=== PATIENT | female | born 1985 | race Caucasian/White ===

== ENCOUNTER → 2016-08-27 | Outpatient (CLI) | payer BC | LOC: M SMT 14:45 | PROVIDERS: ATTEND Obstetrics & Gynecology | DX: Z36 Encounter for antenatal screening of mother (principal); Z31.430 Encounter of female for testing for genetic disease carrier status for procreative management ==

== ENCOUNTER → 2016-09-13 | Outpatient (CLI) | payer BC ==
--- NOTE | 2016-09-13 10:38 | REP ---
OBSTETRIC SONOGRAPHY: HISTORY: Supervision of for anatomy. FINDINGS: Scanning through the gravid uterus demonstrates a viable single intrauterine gestation in a cephalic lie. motion is observed, and heart rate is recorded at 155 beats per minute. An anterior grade 0 placenta is seen without evidence of previa or abruption. Amniotic fluid is subjectively normal. Closed cervical length is measured at 4.6 cm transabdominally. No extrauterine abnormalities observed. No anomaly is seen. The following anatomic structures are identified and felt to be sonographically unremarkable: cranium, choroid plexus, cavum, cerebellum and posterior fossa, face and profile, lungs, four-chamber heart with left and right ventricular outflow tract views, diaphragm, left-sided stomach, abdominal wall cord insertion, three-vessel umbilical cord, kidneys and bladder, spine, upper and lower extremities. BIOMETRY CHART: BPD 4.3 cm = 19 weeks 0 days Head circumference 16.0 cm = 18 weeks 6 days Abdominal circumference 13.7 cm = 19 weeks 1 day Femur length 2.7 cm = 18 weeks 2 days Humeral length 2.7 cm = 18 weeks 6 days HC/AC ratio normal 1.17 Cephalic index normal 0.75 Estimated weight 256 grams, 0 pounds 9 ounces, 52nd percentile for 18 weeks 4 days. IMPRESSION: Viable single intrauterine gestation at 18 weeks 6 days by today's composite sonographic criteria. BRITTNEY by today's sonography, February 08, 2017. No anomaly is seen. Signed by Wilfredo Proctor MD 09/13/2016 01:30 P
== END ==
LOC: M RAD 07:36
PROVIDERS: ATTEND Obstetrics & Gynecology
DX: Z34.02 Encounter for supervision of normal first pregnancy, second trimester (principal); Z36 Encounter for antenatal screening of mother; Z3A.18 18 weeks gestation of pregnancy

== ENCOUNTER → 2016-11-06 | Outpatient (CLI) | payer BC ==
[2016-11-06 13:42] LABS: MEAN CORPUSCULAR HEMOGLOBIN 33.4 pg (27.0-33.0); MEAN CORPUSCULAR HGB CONC 36.2 g/dl (32.0-36.5); MEAN CORPUSCULAR VOLUME 92.2 fl (80.0-96.0); RED CELL DISTRIBUTION WIDTH 12.6 % (11.5-14.5); WHITE BLOOD COUNT 9.8 K/mm3 (4.0-10.0)
== END ==
LOC: M SMT 08:05
PROVIDERS: ATTEND Advanced Practice Midwife
DX: Z34.82 Encounter for supervision of other normal pregnancy, second trimester (principal); Z36 Encounter for antenatal screening of mother

== ENCOUNTER → 2016-12-14 | Outpatient (CLI) | payer BC ==
[2016-12-14 13:38] LABS: MEAN CORPUSCULAR HEMOGLOBIN 32.5 pg (27.0-33.0); MEAN CORPUSCULAR HGB CONC 35.6 g/dl (32.0-36.5); MEAN CORPUSCULAR VOLUME 91.3 fl (80.0-96.0); RED CELL DISTRIBUTION WIDTH 12.6 % (11.5-14.5); WHITE BLOOD COUNT 9.4 K/mm3 (4.0-10.0)
[2016-12-14 14:02] LABS: ALBUMIN 2.9 GM/DL (3.2-5.2); ALBUMIN/GLOBULIN RATIO 0.78 (1.00-1.93); ALKALINE PHOSPHATASE 119 U/L (45-117); ALT/SGPT 14 U/L (12-78); AST/SGOT 12 U/L (15-37); BILIRUBIN,DIRECT < 0.1 MG/DL (0.0-0.2); BILIRUBIN,TOTAL 0.3 MG/DL (0.2-1.0); TOTAL PROTEIN 6.6 GM/DL (6.4-8.2)
== END ==
LOC: M SMT 08:36
PROVIDERS: ATTEND Advanced Practice Midwife
DX: R21 Rash and other nonspecific skin eruption (principal)

== ENCOUNTER → 2017-01-18 | Outpatient (REF) | payer BC ==
[~2017-01-18] MED LIST: ACET50TA PO; IBUP-1114 PO; MULTLIQ7 PO; PRENTAB9 PO; birth control PO
== END ==
LOC: M LAB REF 12:57
PROVIDERS: ATTEND Advanced Practice Midwife
DX: Z34.83 Encounter for supervision of other normal pregnancy, third trimester (principal); Z36 Encounter for antenatal screening of mother

== ENCOUNTER 2017-01-29 21:33 | Inpatient (IN) | payer BC ==
[~2017-01-29] VITALS: Ht 160 cm; Wt 75.0 kg
[2017-01-29] MEDS ORDERED: LR 1,000 ML IV SCH (23:50)
[2017-01-30] VITALS (34 sets, daily range): BP systolic 118–175; BP diastolic 70–105
[2017-01-30] MEDS ORDERED: OXYTOCIN DRIP 30 UNITS in APPROPRIATE DILUENT 1 EA IV SCH ×2
[2017-01-30 00:23] LABS: MEAN CORPUSCULAR HEMOGLOBIN 31.1 pg (27.0-33.0); MEAN CORPUSCULAR HGB CONC 35.1 g/dl (32.0-36.5); MEAN CORPUSCULAR VOLUME 88.8 fl (80.0-96.0); RED CELL DISTRIBUTION WIDTH 12.8 % (11.5-14.5); WHITE BLOOD COUNT 12.3 K/mm3 (4.0-10.0)
[2017-01-30 00:50] LABS: ALT/SGPT 14 U/L (12-78); AST/SGOT 14 U/L (15-37); BILIRUBIN,TOTAL 0.3 MG/DL (0.2-1.0); CREATININE FOR GFR 0.53 MG/DL (0.55-1.02); GLOMERULAR FILTRATION RATE > 60.0 (>60); URIC ACID 5.1 MG/DL (2.6-6.0)
[2017-01-30] MEDS ORDERED: FENTANYL 2MCG/ML ROPIVACAINE 0.2% IN 0.9% NACL 200ML IVBAG As Ordered ONE (03:37)
[2017-01-30] MEDS ORDERED: ePHEDrine SULFATE 25 MG/5 ML(5MG/ML) SYRINGE As Ordered ONE (04:47)
[2017-01-30] MEDS ORDERED: EPIDURAL COMMENT XX SCH (05:00)
[2017-01-30] MEDS ORDERED: FENTANYL/ROPIVACAINE/NACL BAG 200 ML EPIDURAL SCH (05:00)
[2017-01-30] MEDS ORDERED: ONDANSETRON 4MG/2ML VIAL (J2405) IV PRN (05:00)
[2017-01-30] MEDS ORDERED: NALOXONE INJ 0.4 MG/1 ML VIAL (J2310) IV PRN (05:00)
[2017-01-30] MEDS ORDERED: diphenhydrAMINE INJ 50MG/ML VIAL (J1200) IV PRN (05:00)
[2017-01-30] MEDS ORDERED: ePHEDrine SULFATE 25 MG/5 ML(5MG/ML) SYRINGE IV PRN (05:00)
[2017-01-30] MEDS ORDERED: LACTATED RINGER'S 1000 ML IV PRN (05:00)
[2017-01-30] MEDS ORDERED: EPIDURAL/PCA KEYS XX PRN (05:00)
[2017-01-30] MEDS ORDERED: REFRIGERATOR IV KEYS XX PRN (05:00)
--- NOTE | 2017-01-30 05:19 | HPE ---
DATE OF ADMISSION: 01/29/2017 Kisha is a 31-year-old 1, para 0, at 38-2/7 weeks gestation with an estimated date of confinement (EDC) of 02/11/2016 based on last menstrual period and confirmed by first trimester ultrasound. She presents to labor and delivery today with report of spontaneous rupture of membranes, small amount of clear odorless fluid and continued leakage. She does report some occasional contractions. Denies vaginal bleeding and the fetus has been active. care was initiated at [facility] in the first trimester. course complicated by positive cystic fibrosis carrier screening. Father of baby was tested and is found to be negative. History of anxiety. History of hypertension, although has not been on medications in several years. OBSTETRICAL HISTORY: Primigravida. OB LABS: Blood type B negative, antibody screen negative, rubella immune, VDRL nonreactive. Urine culture no growth. Hepatitis B surface antigen negative. HIV negative. Hepatitis C antibody negative. Gonorrhea and chlamydia negative. Positive cystic fibrosis carrier screen. Negative quad screen. Gestational diabetic screening 122 and GBS is negative. PAST MEDICAL HISTORY: Hypertension, childhood varicella. SURGERIES: None. FAMILY HISTORY: Lung cancer. SOCIAL HISTORY: The patient is . Father of the baby is at bedside and supportive. She is a nonsmoker. Denies alcohol and drug use. No history of any sexually transmitted infections and denies history of abuse physical, sexual and emotional. ALLERGIES: NO KNOWN DRUG ALLERGIES. CURRENT MEDICATIONS: Include: - vitamin OBJECTIVE: Temperature 98,8, pulse 88, respirations 18. Blood pressures are elevated: 139/94, 139/91, 144/94. heart rate 130 with moderate variability, positive accelerations, positive variable decelerations noted. Contractions every 3-6 minutes. Sterile speculum exam: Positive Nitrazine, positive ferning. Sterile vaginal exam: 1 cm dilated, 80% effaced, minus 3 station. Abdomen is gravid, cephalic presentation. Estimated weight 7-1/ 2 pounds. ASSESSMENT: Intrauterine at 38-2/7 weeks. heart rate category 2. Premature rupture of membranes. Likely Preeclampsia PLAN: Admit patient to labor and delivery. Out of bed ad clarita. Labs as ordered , including a pre-eclamptic profile and a spot urine. Start intravenous (IV) Pitocin for labor induction. I did review Pitocin use induction versus expectant management. The patient does desire an epidural when she is in active labor. All the patient and her 's questions have been answered and they do desire to proceed with induction. MTDD
[2017-01-30] MEDS ORDERED: MEASLES,MUMPS,RUBELLA VACCINE INJ (MMR-II) (90707) SC SCH (15:45)
[2017-01-30] MEDS ORDERED: DOCUSATE SODIUM 100 MG CAP PO PRN (15:45)
[2017-01-30] MEDS ORDERED: RHOGAM 300 MCG (1500 IU) INJ (J2790) IM SCH (15:45)
[2017-01-30] MEDS ORDERED: MOM 30ML SUSPENSION UDC PO PRN (15:45)
[2017-01-30] MEDS ORDERED: METHYLERGONOVINE MALEATE 0.2 MG TAB PO PRN (15:45)
[2017-01-30] MEDS ORDERED: DIBUCAINE 1% OINTMENT 30GM TOP PRN (15:45)
[2017-01-30] MEDS ORDERED: ANUSOL HC CREAM 30GM TOP PRN (15:45)
[2017-01-30] MEDS ORDERED: miSOPROStol 200 MCG TAB (S0191) PR ONE (16:00)
[2017-01-30] MEDS: IBUPROFEN 800 MG TAB PO PRN ×2 (16:51→23:36)
[2017-01-30] MEDS: ACETAMINOPHEN 500 MG TAB PO PRN ×2 (16:51→23:35)
[2017-01-31 06:22] VITALS: BP 141/98
[2017-01-31 06:44] LABS: MEAN CORPUSCULAR HEMOGLOBIN 32.4 pg (27.0-33.0); MEAN CORPUSCULAR HGB CONC 36.1 g/dl (32.0-36.5); MEAN CORPUSCULAR VOLUME 89.7 fl (80.0-96.0); RED CELL DISTRIBUTION WIDTH 12.6 % (11.5-14.5); WHITE BLOOD COUNT 13.3 K/mm3 (4.0-10.0)
[2017-01-31 07:04] LABS: ALT/SGPT 13 U/L (12-78); AST/SGOT 26 U/L (15-37); BILIRUBIN,TOTAL 0.4 MG/DL (0.2-1.0); CREATININE FOR GFR 0.64 MG/DL (0.55-1.02); GLOMERULAR FILTRATION RATE > 60.0 (>60); URIC ACID 5.4 MG/DL (2.6-6.0)
[2017-01-31] MEDS: PRENATAL VITAMINS CHEWABLE TABLET PO SCH (09:41)
[2017-01-31] MEDS: IBUPROFEN 800 MG TAB PO PRN ×2 (09:42→21:25)
--- NOTE | 2017-01-31 11:49 | DN ---
DATE: 01/30/2017 Spontaneous rupture of membranes on January 29 at 1945 hours. Pitocin augmentation. Artificial rupture of membranes at 1005 hours on January 30. Thin , meconium stained fluid. Utilized epidural for coping. Viable female delivered JOVAN through nuchal cord at 1505 hours. Deep suction by Dr. Varma prior to simulation. Spontaneous respirations with stimulation. Transitioned on maternal abdomen. Cord doubly clamped and cut after approximately 1 minute. scores of seven and nine. Placenta Arana intact with three-vessel cord at 1514 hours. Fundus firmed with massage and IV Pitocin bolus; however, brisk bleeding persisted. Misoprostol 1000 mcg per rectum with good control of bleeding. Second-degree perineal laceration repaired in layers with #3-0 Vicryl Rapide. Estimated blood loss 500 mL. weight is pending. Sponge, sharp and instrument count correct. MTDD
[2017-01-31 18:52] VITALS: BP 139/87
[2017-02-01 06:54] VITALS: BP 145/87
[2017-02-01] MEDS: PRENATAL VITAMINS CHEWABLE TABLET PO SCH (09:27)
[2017-02-01] MEDS: IBUPROFEN 800 MG TAB PO PRN (09:28)
[2017-02-01] MEDS ORDERED: ACET50TA PO (11:24)
[2017-02-01] MEDS ORDERED: IBUP-1114 PO (11:24)
[2017-02-01] MEDS ORDERED: PRENTAB9 PO (11:24)
== END 2017-02-01 12:00 | disposition home or self-care (01) | DRG 560 ==
LOC: M LDO 21:33 → M LDI 23:47 → M OBS 01-30 20:23
PROVIDERS: ADMIT Advanced Practice Midwife; ATTEND Advanced Practice Midwife
PROC: 3E033VJ Introduction of Other Hormone into Peripheral Vein, Percutaneous Approach (ICD-10-PCS; 2017-01-29)
PROC: 10E0XZZ Delivery of Products of Conception, External Approach (ICD-10-PCS; principal; 2017-01-30)
PROC: 0KQM0ZZ Repair Perineum Muscle, Open Approach (ICD-10-PCS; 2017-01-30)
PROC: 10907ZC Drainage of Amniotic Fluid, Therapeutic from Products of Conception, Via Natural or Artificial Opening (ICD-10-PCS; 2017-01-30)
DX: O14.04 Mild to moderate pre-eclampsia, complicating childbirth (principal); O42.02 Full-term premature rupture of membranes, onset of labor within 24 hours of rupture; Z37.0 Single live birth; Z3A.38 38 weeks gestation of pregnancy; O70.1 Second degree perineal laceration during delivery

== ENCOUNTER 2017-04-13 17:03 | Emergency (ER) | payer BC ==
[~2017-04-13] VITALS: Ht 160 cm; Wt 56.8 kg
[~2017-04-13 17:03] MED LIST changes: -MULTLIQ7 PO; -birth control PO
[2017-04-13 17:04] VITALS: BP 181/99
[2017-04-13] MEDS ORDERED: birth control PO (17:11)
[2017-04-13] MEDS ORDERED: MULTLIQ7 PO (17:11)
== END 2017-04-13 18:18 | disposition home or self-care (01) ==
LOC: M ED 17:03
DX: S01.01XA Laceration without foreign body of scalp, initial encounter (principal); V86.99XA Unspecified occupant of other special all-terrain or other off-road motor vehicle injured in nontraffic accident, initial encounter; Y92.9 Unspecified place or not applicable; Y93.9 Activity, unspecified; Y99.9 Unspecified external cause status; F41.9 Anxiety disorder, unspecified; Z79.3 Long term (current) use of hormonal contraceptives; Z79.899 Other long term (current) drug therapy

== ENCOUNTER 2017-04-15 08:19 | Emergency (ER) | payer BC ==
[~2017-04-15] VITALS: Ht 160 cm; Wt 66.8 kg
[~2017-04-15 08:19] MED LIST changes: +MULTLIQ7 PO; +birth control PO
[2017-04-15 09:16] VITALS: BP 162/102
--- NOTE | 2017-04-15 09:55 | REP ---
CT Head without contrast HISTORY: Trauma COMPARISON: None There is no intraparenchymal hemorrhage, acute infarct, mass or midline shift. The ventricular system is normal in appearance. There is no extra cerebral collection. There is no fracture. The visualized sinuses are clear. Surgical thanh are present in the subcutaneous tissue overlying the right frontal bone. IMPRESSION: There is no intracranial lesion. Signed by Yogesh Gama MD 04/15/2017 09:46 A
== END 2017-04-15 10:29 | disposition home or self-care (01) ==
LOC: M ED 08:19
DX: G44.309 Post-traumatic headache, unspecified, not intractable (principal); F41.9 Anxiety disorder, unspecified; Z79.3 Long term (current) use of hormonal contraceptives

== ENCOUNTER → 2017-08-02 | Outpatient (REF) | payer OTHER ==
[2017-08-02 14:19] LABS: HEMATOCRIT 38.7 % (36.0-47.0); HEMOGLOBIN 12.9 g/dl (12.0-16.0); MEAN CORPUSCULAR HEMOGLOBIN 30.4 pg (27.0-33.0); MEAN CORPUSCULAR HGB CONC 33.3 g/dl (32.0-36.5); MEAN CORPUSCULAR VOLUME 91.3 fl (80.0-96.0); PLATELET COUNT, AUTOMATED 303 10^3/uL (150-450); RED BLOOD COUNT 4.24 10^6/uL (4.00-5.40); RED CELL DISTRIBUTION WIDTH 12.6 % (11.5-14.5); WHITE BLOOD COUNT 5.4 10^3/uL (4.0-10.0)
[2017-08-02 14:48] LABS: ALBUMIN 4.3 GM/DL (3.2-5.2); ALBUMIN/GLOBULIN RATIO 1.19 (1.00-1.93); ALKALINE PHOSPHATASE 48 U/L (45-117); ALT/SGPT 20 U/L (12-78); ANION GAP 9 MEQ/L (8-16); AST/SGOT 13 U/L (7-37); BILIRUBIN,TOTAL 0.5 MG/DL (0.2-1.0); BLOOD UREA NITROGEN 15 MG/DL (7-18); CARBON DIOXIDE LEVEL 25 MEQ/L (21-32); CHLORIDE LEVEL 105 MEQ/L (98-107); CHOLESTEROL LEVEL 218 MG/DL (<200); CHOLESTEROL RISK RATIO 5.589 (<5); CREATININE FOR GFR 0.79 MG/DL (0.55-1.02); FREE T4 1.09 NG/DL (0.76-1.46); GLOMERULAR FILTRATION RATE > 60.0 (>60); GLUCOSE, FASTING 74 MG/DL (70-105); HDL CHOLESTEROL 39 MG/DL (>40); LDL CHOLESTEROL 161.8 MG/DL (<100); NON-HDL-C 179 MG/DL; POTASSIUM SERUM 4.8 MEQ/L (3.5-5.1); SODIUM LEVEL 139 MEQ/L (136-145); THYROID STIMULATING HORMONE 0.422 uIU/ML (0.358-3.740); TOTAL PROTEIN 7.9 GM/DL (6.4-8.2); TRIGLYCERIDES LEVEL 86 MG/DL (<150)
== END ==
LOC: M SFHCPLAZ 13:32
DX: Z00.00 Encounter for general adult medical examination without abnormal findings (principal); Z13.220 Encounter for screening for lipoid disorders

== ENCOUNTER → 2018-07-09 | Outpatient (CLI) | payer OTHER ==
[~2018-07-09] MED LIST changes: -ACET50TA PO; +MAPA500T2 PO
== END ==
LOC: M EKG 06-09 11:39
PROVIDERS: ATTEND Nurse Practitioner Family
DX: R03.0 Elevated blood-pressure reading, without diagnosis of hypertension (principal)

== ENCOUNTER → 2018-07-17 | Outpatient (REF) | payer OTHER ==
[2018-07-17 13:13] LABS: ALT/SGPT 17 U/L (12-78); BILIRUBIN,TOTAL 0.8 MG/DL (0.2-1.0); BLOOD UREA NITROGEN 12 MG/DL (7-18); CARBON DIOXIDE LEVEL 26 MEQ/L (21-32); CHLORIDE LEVEL 103 MEQ/L (98-107); CHOLESTEROL LEVEL 197 MG/DL (<200); CHOLESTEROL RISK RATIO 4.104 (<5); GLOMERULAR FILTRATION RATE > 60.0 (>60); GLUCOSE, FASTING 77 MG/DL (70-100); HDL CHOLESTEROL 48 MG/DL (>40); LDL CHOLESTEROL 125 MG/DL (<100); NON-HDL-C 149 MG/DL; POTASSIUM SERUM 4.3 MEQ/L (3.5-5.1); SODIUM LEVEL 138 MEQ/L (136-145); TOTAL PROTEIN 7.9 GM/DL (6.4-8.2); TRIGLYCERIDES LEVEL 121 MG/DL (<150)
== END ==
LOC: M LABDRAW1 12:00
PROVIDERS: ATTEND Nurse Practitioner Family
DX: R03.0 Elevated blood-pressure reading, without diagnosis of hypertension (principal); Z13.220 Encounter for screening for lipoid disorders

== ENCOUNTER → 2019-06-22 | Outpatient (CLI) | payer OTHER ==
[~2019-06-22] MED LIST changes: +KEFL500C17 PO; +LABE100T36; +REGL10TA6 PO
[2019-06-22 16:58] LABS: ALT/SGPT 27 U/L (12-78); BILIRUBIN,TOTAL 0.4 MG/DL (0.2-1.0); CREATININE FOR GFR 0.54 MG/DL (0.55-1.30); GLOMERULAR FILTRATION RATE > 60.0 (>60); LDH LACTATE DEHYDROGENASE 122 U/L (84-246); URIC ACID 2.3 MG/DL (2.6-6.0)
[2019-06-22 17:16] LABS: CREATININE,RANDOM URINE 79.4 MG/DL; TOTAL PROTEIN,RANDOM URINE 11.3 MG/DL (0.0-12.0)
[2019-06-22 17:17] LABS: HEMATOCRIT 35.4 % (36.0-47.0); HEMOGLOBIN 11.7 g/dl (12.0-15.5); MEAN CORPUSCULAR HEMOGLOBIN 30.6 pg (27.0-33.0); MEAN CORPUSCULAR HGB CONC 33.1 g/dl (32.0-36.5); MEAN CORPUSCULAR VOLUME 92.7 fl (80.0-96.0); PLATELET COUNT, AUTOMATED 243 10^3/uL (150-450); RED BLOOD COUNT 3.82 10^6/uL (4.00-5.40); WHITE BLOOD COUNT 7.9 10^3/uL (4.0-10.0)
[2019-06-22 17:18] LABS: RUBELLA IgG QUALITATIVE IMMUNE (IMMUNE)
[2019-06-22 17:47] LABS: HIV 1&2 SCREEN CENTAUR NEGATIVE (NEGATIVE)
[2019-06-22 19:07] LABS: CHLAMYDIA DNA AMPLIFICATION NEGATIVE (NEGATIVE); GC DNA AMPLIFICATION NEGATIVE (NEGATIVE)
[2019-06-24 13:24] LABS: HEPATITIS B SURFACE ANTIGEN NEGATIVE (NEGATIVE)
[2019-06-24 13:37] LABS: HEPATITIS C VIRUS ABY INDEX 0.1 INDEX (<0.8)
== END ==
LOC: M WUC 13:29
PROVIDERS: ATTEND Obstetrics & Gynecology
DX: O09.91 Supervision of high risk pregnancy, unspecified, first trimester (principal); Z3A.00 Weeks of gestation of pregnancy not specified

== ENCOUNTER 2019-06-23 10:40 | Emergency (ER) | payer OTHER ==
[~2019-06-23] VITALS: Ht 160 cm; Wt 62.3 kg
[~2019-06-23 10:40] MED LIST changes: -KEFL500C17 PO; -LABE100T36; -REGL10TA6 PO
[2019-06-23] MEDS ORDERED: LABE100T36 (10:46)
[2019-06-23] MEDS ORDERED: NS 1,000 ML IV ONE (11:30)
[2019-06-23] MEDS ORDERED: METOCLOPRAMIDE INJ 10MG/2ML VIAL (J2765) IV ONE (11:30)
[2019-06-23 12:09] LABS: BLOOD UREA NITROGEN 10 MG/DL (7-18); CALCIUM LEVEL 9.1 MG/DL (8.5-10.1); CARBON DIOXIDE LEVEL 22 MEQ/L (21-32); CHLORIDE LEVEL 106 MEQ/L (98-107); GLOMERULAR FILTRATION RATE > 60.0 (>60); GLUCOSE, FASTING 88 MG/DL (70-100); POTASSIUM SERUM 3.9 MEQ/L (3.5-5.1); SODIUM LEVEL 137 MEQ/L (136-145)
[2019-06-23] MEDS ORDERED: REGL10TA6 PO (13:41)
[2019-06-23 14:00] VITALS: BP 124/81
[2019-06-23] MEDS ORDERED: KEFL500C17 PO (14:00)
== END 2019-06-23 14:03 | disposition home or self-care (01) ==
LOC: M ED 10:40
DX: O98.511 Other viral diseases complicating pregnancy, first trimester (principal); K52.9 Noninfective gastroenteritis and colitis, unspecified; O23.41 Unspecified infection of urinary tract in pregnancy, first trimester; R82.71 Bacteriuria; Z3A.00 Weeks of gestation of pregnancy not specified; Z79.899 Other long term (current) drug therapy
CPT/HCPCS: 36415; 80048; 81001; 83735; 87086; 96361; 96374; 99284; J2765

== ENCOUNTER → 2019-07-17 | Outpatient (CLI) | payer OTHER ==
[~2019-07-17] MED LIST changes: +KEFL500C17 PO; +LABE100T36; +REGL10TA6 PO
== END ==
LOC: M PLALAB 10:52
PROVIDERS: ATTEND Obstetrics & Gynecology
DX: Z34.81 Encounter for supervision of other normal pregnancy, first trimester (principal)

== ENCOUNTER → 2019-08-31 | Outpatient (CLI) | payer OTHER ==
--- NOTE | 2019-08-31 11:30 | REP ---
Clinical: Anatomical evaluation. Comparison: None . Findings: Examination demonstrates a single live intrauterine in cephalic presentation. motion is identified by technologist. Placenta is noted the posterior and grade 07/00 without evidence for placenta previa or abruption. Amniotic fluid volume is normal. Cervix measures 4.5 cm in length and appears closed. No evidence for nuchal cord. Gestational age by LMP 19 weeks 6 days with BRITTNEY 01/19/2020 . Gestational age by current measurements 20 weeks 3 days with BRITTNEY 01/15/2020 . FHR equals 169 beats per minute. BPD 4.9 cm 20 weeks 6 days HC 18.1 cm 20 weeks 3 days AC 15.7 cm 20 weeks 6 days FL 3.2 cm 20 weeks 0 days HL 3.1 cm 20 weeks 2 days HC/AC ratio 1.15 Estimated weight 359 grams ( 70th percentile). Anatomical assessment demonstrates normal structures including cranium, choroid plexus, cavum, cerebellum/posterior fossa, facial features, lungs, four-chamber heart/ventricular outflow tracts, diaphragm, stomach, cord insertion/three-vessel cord, kidneys/bladder, spine, and extremities. Impression: Single live intrauterine in cephalic presentation demonstrating appropriate interval growth. Anatomical assessment is complete and normal. Electronically Signed by Rehan Belle MD 08/31/2019 11:22 A
== END ==
LOC: M RAD 10:04
PROVIDERS: ATTEND Obstetrics & Gynecology
DX: Z34.81 Encounter for supervision of other normal pregnancy, first trimester (principal)

== ENCOUNTER → 2019-10-14 | Outpatient (REF) | payer OTHER ==
[2019-10-14 17:43] LABS: HEMATOCRIT 34.5 % (36.0-47.0); HEMOGLOBIN 11.8 g/dl (12.0-15.5); MEAN CORPUSCULAR HEMOGLOBIN 32.1 pg (27.0-33.0); MEAN CORPUSCULAR HGB CONC 34.2 g/dl (32.0-36.5); MEAN CORPUSCULAR VOLUME 93.8 fl (80.0-96.0); PLATELET COUNT, AUTOMATED 260 10^3/uL (150-450); RED BLOOD COUNT 3.68 10^6/uL (4.00-5.40); WHITE BLOOD COUNT 10.8 10^3/uL (4.0-10.0)
== END ==
LOC: M PLALAB 13:42
PROVIDERS: ATTEND Advanced Practice Midwife
DX: Z34.82 Encounter for supervision of other normal pregnancy, second trimester (principal); Z3A.00 Weeks of gestation of pregnancy not specified
CPT/HCPCS: 82950; 85027; 86850; 86900; 86901; J2790

== ENCOUNTER → 2019-11-11 | Outpatient (CLI) | payer OTHER | LOC: M WHC 07:37 | PROVIDERS: ATTEND Advanced Practice Midwife | DX: O10.913 Unspecified pre-existing hypertension complicating pregnancy, third trimester (principal); Z53.9 Procedure and treatment not carried out, unspecified reason ==

== ENCOUNTER → 2019-11-23 | Outpatient (CLI) | payer OTHER ==
--- NOTE | 2019-11-23 19:55 | REP ---
Clinical: Growth evaluation Comparison: 08/31/2019 . Findings: Examination demonstrates a single live intrauterine in breech presentation. motion is identified by technologist. Placenta is noted posterior and grade I without evidence for placenta previa or abruption. Amniotic fluid volume is normal. Cervix measures 3.9 cm in length and appears closed. No evidence for nuchal cord. Gestational age by LMP 31 weeks 6 days with BRITTNEY 01/19/2020 . Gestational age by current measurements 31 weeks 6 days with BRITTNEY 01/19/2020 . FHR equals 133 beats per minute. Amniotic fluid index: 12.2 cm Estimated weight by current biometrical measurements 1918 grams ( 49th percentile). Impression: Single live intrauterine in breech presentation demonstrating appropriate interval growth. No gross abnormalities are identified.
== END ==
LOC: M WHC 11:20
PROVIDERS: ATTEND Advanced Practice Midwife
DX: O10.913 Unspecified pre-existing hypertension complicating pregnancy, third trimester (principal)

== ENCOUNTER → 2019-12-15 | Outpatient (REF) | payer OTHER | LOC: M SFHCWAGY 18:03 | PROVIDERS: ATTEND Obstetrics & Gynecology | DX: O10.913 Unspecified pre-existing hypertension complicating pregnancy, third trimester (principal) ==

== ENCOUNTER → 2019-12-21 | Outpatient (CLI) | payer OTHER ==
--- NOTE | 2019-12-22 09:03 | REP ---
Clinical: Growth evaluation. Comparison: 11/23/2019 . Findings: Examination demonstrates a single live intrauterine in cephalic presentation. motion is identified by technologist. Placenta is noted posterior and grade I I without evidence for placenta previa or abruption. Amniotic fluid volume is normal. Cervix measures 3.9 cm in length and appears closed. No evidence for nuchal cord. Gestational age by LMP 35 weeks 6 days with BRITTNEY 01/19/2020 . Gestational age by current measurements 36 weeks 0 days with BRITTNEY 01/18/2020 . FHR equals 150 beats per minute. Estimated weight 3034 grams ( 66 percentile). Amniotic fluid index: 11.4 cm Impression: single live advanced gestation in cephalic presentation demonstrating appropriate interval growth.
== END ==
LOC: M WHC 07:56
PROVIDERS: ATTEND Advanced Practice Midwife
DX: O10.913 Unspecified pre-existing hypertension complicating pregnancy, third trimester (principal)

== ENCOUNTER 2019-12-31 11:33 | Inpatient (IN) | payer OTHER ==
[~2019-12-31] VITALS: Ht 160 cm; Wt 74.5 kg
[2019-12-31] VITALS (42 sets, daily range): BP systolic 94–161; BP diastolic 50–95
[2019-12-31] MEDS ORDERED: ASPI81CH33 PO (11:46)
[2019-12-31] MEDS ORDERED: LABE100T36 PO (11:46)
[2019-12-31] MEDS ORDERED: LACTATED RINGER'S 1000 ML IV STA (13:01)
[2019-12-31] MEDS ORDERED: OXYTOCIN 30 UNITS IN 0.9% NaCl 500ML IV BAG (J2590) As Ordered ONE (13:40)
[2019-12-31 13:48] LABS: HEMATOCRIT 30.5 % (36.0-47.0); HEMOGLOBIN 10.6 g/dl (12.0-15.5); MEAN CORPUSCULAR HEMOGLOBIN 31.5 pg (27.0-33.0); MEAN CORPUSCULAR HGB CONC 34.8 g/dl (32.0-36.5); MEAN CORPUSCULAR VOLUME 90.8 fl (80.0-96.0); PLATELET COUNT, AUTOMATED 207 10^3/uL (150-450); RED BLOOD COUNT 3.36 10^6/uL (4.00-5.40); WHITE BLOOD COUNT 9.7 10^3/uL (4.0-10.0)
[2019-12-31] MEDS ORDERED: OXYTOCIN DRIP 30 UNITS in IV 1 EA IV SCH (14:00)
[2019-12-31 14:09] LABS: ALT/SGPT 21 U/L (12-78); BILIRUBIN,TOTAL 0.4 MG/DL (0.2-1.0); CREATININE FOR GFR 0.46 MG/DL (0.55-1.30); GLOMERULAR FILTRATION RATE > 60.0 (>60); LDH LACTATE DEHYDROGENASE 161 U/L (84-246); URIC ACID 4.2 MG/DL (2.6-6.0)
[2019-12-31] MEDS: LR 1,000 ML IV SCH ×3 (15:52→23:00)
[2019-12-31] MEDS: LABETALOL 100MG TAB PO SCH (21:31)
[2019-12-31] MEDS ORDERED: FENTANYL 2MCG/ML ROPIVACAINE 0.2% IN 0.9% NACL 100ML IVBAG As Ordered ONE (21:57)
[2019-12-31] MEDS ORDERED: ePHEDrine SULFATE 25 MG/5 ML(5MG/ML) SYRINGE IV PRN (23:00)
[2019-12-31] MEDS ORDERED: FENTANYL/ROPIVACAINE/NACL BAG 100 ML EPIDURAL SCH (23:00)
[2019-12-31] MEDS ORDERED: NALOXONE INJ 0.4MG/1ML VIAL (J2310 PER 1MG) IV PRN (23:00)
[2019-12-31] MEDS ORDERED: diphenhydrAMINE 50MG/ML VIAL (J1200) IV PRN (23:00)
[2019-12-31] MEDS ORDERED: EPIDURAL COMMENT XX SCH (23:00)
[2019-12-31] MEDS ORDERED: LACTATED RINGER'S 1000 ML IV PRN (23:00)
[2019-12-31] MEDS ORDERED: REFRIGERATOR IV KEYS XX PRN (23:00)
[2019-12-31] MEDS ORDERED: EPIDURAL/PCA KEYS XX PRN (23:00)
[2019-12-31] MEDS ORDERED: ONDANSETRON 4MG/2ML VIAL IV PRN (23:00)
[2020-01-01] VITALS (41 sets, daily range): BP systolic 101–155; BP diastolic 55–101
[2020-01-01] MEDS: LR 1,000 ML IV SCH (00:08)
[2020-01-01] MEDS ORDERED: LR 1,000 ML IV SCH (08:55)
[2020-01-01] MEDS: LABETALOL 100MG TAB PO SCH ×2 (09:00→21:23)
[2020-01-01] MEDS ORDERED: MEASLES,MUMPS,RUBELLA VACCINE INJ (MMR-II) (90707) SC SCH (09:00)
[2020-01-01] MEDS ORDERED: DOCUSATE SODIUM 100MG CAPSULE PO PRN (09:00)
[2020-01-01] MEDS ORDERED: IBUPROFEN 600MG TAB PO PRN (09:00)
[2020-01-01] MEDS ORDERED: ONDANSETRON 4MG/2ML VIAL IV PRN (09:00)
[2020-01-01] MEDS ORDERED: RHOGAM 300 MCG (1500 IU) INJ (J2790) IM SCH (09:00)
[2020-01-01] MEDS ORDERED: ACETAMINOPHEN TAB 650MG DOSE (2X325MG) PO PRN (09:00)
[2020-01-01] MEDS ORDERED: ACETAMINOPHEN 500 MG TAB PO PRN (09:00)
[2020-01-01] MEDS: DIBUCAINE 1% OINTMENT 30GM TOP PRN (09:43)
[2020-01-01] MEDS: PRENATAL VITAMINS CHEWABLE TABLET PO SCH (09:43)
[2020-01-01] MEDS: IBUPROFEN 800 MG TAB PO PRN ×2 (09:44→18:03)
[2020-01-01] MEDS ORDERED: LIDOCAINE 1% MDV 20ML VIAL INFIL ONE (14:00)
[2020-01-01] MEDS ORDERED: ceFAZolin SOD 2 GM in IV 1 EA IV ONE (14:00)
[2020-01-02 02:00] VITALS: BP 127/65
[2020-01-02 06:00] VITALS: BP 119/68
--- NOTE | 2020-01-02 07:05 | IPNPDOC ---
Text Note Date of Service The patient was seen on 01/02/20. NOTE PP #1 Feels well. Adequate pain management. Voiding. VSS, afebrile, normotensive Breasts soft, nipples intact Fundus firm, NT, down 1 FB Vaginal packing removed. No further bleeding, no evidence hematoma Lochia rubra light without odor Perineum well approximated. Anticipate D/C in am VS,Fishbone, I+O VS, Fishbone, I+O Vital Signs Date Time Temp Pulse Resp B/P (MAP) Pulse Ox O2 Delivery O2 Flow Rate FiO2 01/02/20 06:00 98.8 73 16 119/68 (85) 98 Room Air I&O- Last 24 Hours up to 6 AM 01/02/20 06:00 Intake Total 503 ml Output Total 800 ml Balance -297 ml Jess Nelson CNM Jan 02, 2020 07:05
[2020-01-02] MEDS: LABETALOL 100MG TAB PO SCH ×2 (09:14→21:36)
[2020-01-02] MEDS: PRENATAL VITAMINS CHEWABLE TABLET PO SCH (09:14)
[2020-01-02 18:00] VITALS: BP 137/89
[2020-01-02 21:36] VITALS: BP 138/82
[2020-01-03 02:26] VITALS: BP 148/85
[2020-01-03 05:36] VITALS: BP 144/87
[2020-01-03] MEDS: DIBUCAINE 1% OINTMENT 30GM TOP PRN (09:08)
[2020-01-03] MEDS: PRENATAL VITAMINS CHEWABLE TABLET PO SCH (09:08)
[2020-01-03 09:09] VITALS: BP 122/76
[2020-01-03] MEDS: LABETALOL 100MG TAB PO SCH (09:09)
[2020-01-03] MEDS ORDERED: IBUP80TA PO (09:15)
[2020-01-03] MEDS ORDERED: ACET-683 PO (09:15)
== END 2020-01-03 12:40 | disposition home or self-care (01) | DRG 807 ==
LOC: M LDI 11:33 → M OBS 01-01 08:48
PROVIDERS: ADMIT Obstetrics & Gynecology; ATTEND Obstetrics & Gynecology
PROC: 3E033VJ Introduction of Other Hormone into Peripheral Vein, Percutaneous Approach (ICD-10-PCS; 2019-12-31)
PROC: 10E0XZZ Delivery of Products of Conception, External Approach (ICD-10-PCS; principal; 2020-01-01)
PROC: 0HQ9XZZ Repair Perineum Skin, External Approach (ICD-10-PCS; 2020-01-01)
DX: O10.92 Unspecified pre-existing hypertension complicating childbirth (principal); Z37.0 Single live birth; Z3A.37 37 weeks gestation of pregnancy; O70.0 First degree perineal laceration during delivery

== ENCOUNTER → 2020-04-19 | Outpatient (REF) | payer OTHER ==
[~2020-04-19] MED LIST changes: +ACET-683 PO; +ASPI81CH33 PO; +IBUP80TA PO; +LABE100T36 PO
== END ==
LOC: M SFHCWAGY 13:09
PROVIDERS: ATTEND Obstetrics & Gynecology
DX: Z12.4 Encounter for screening for malignant neoplasm of cervix (principal)

== ENCOUNTER → 2022-02-08 | Outpatient (REF) | payer OTHER ==
[~2022-02-08] MED LIST changes: -LABE100T36; -LABE100T36 PO; +LABE100T71; +LABE100T71 PO
[2022-02-08 16:33] LABS: BASO % 0.3 % (0.0-1.0); EOS % 0.5 % (0.0-3.0); HEMATOCRIT 38.3 % (36.0-47.0); HEMOGLOBIN 12.5 g/dl (12.0-15.5); LYMPH # 2.5 10^3/uL (1.5-5.0); LYMPH % 41.3 % (24.0-44.0); MEAN CORPUSCULAR HEMOGLOBIN 31.1 pg (27.0-33.0); MEAN CORPUSCULAR HGB CONC 32.6 g/dl (32.0-36.5); MEAN CORPUSCULAR VOLUME 95.3 fl (80.0-96.0); MONO # 0.4 10^3/uL (0.0-0.8); MONO % 6.1 % (2.0-8.0); NEUTROPHILS # 3.1 10^3/uL (1.5-8.5); NEUTROPHILS % 51.6 % (36.0-66.0); PLATELET COUNT, AUTOMATED 342 10^3/uL (150-450); RED BLOOD COUNT 4.02 10^6/uL (4.00-5.40); WHITE BLOOD COUNT 6.1 10^3/uL (4.0-10.0)
[2022-02-08 18:32] LABS: BLOOD UREA NITROGEN 16 MG/DL (7-18); CARBON DIOXIDE LEVEL 27 MEQ/L (21-32); CHLORIDE LEVEL 106 MEQ/L (98-107); GLOMERULAR FILTRATION RATE > 60.0 (>60); GLUCOSE, FASTING 87 MG/DL (70-100); POTASSIUM SERUM 4.2 MEQ/L (3.5-5.1); SODIUM LEVEL 139 MEQ/L (136-145)
[2022-02-08 18:33] LABS: ALT/SGPT 20 U/L (12-78); BILIRUBIN,TOTAL 0.5 MG/DL (0.2-1.0); CALCIUM LEVEL 9.6 MG/DL (8.5-10.1); CHOLESTEROL LEVEL 207 MG/DL (<200); CHOLESTEROL RISK RATIO 3.338 (<5); HDL CHOLESTEROL 62 MG/DL (>40); LDL CHOLESTEROL 130 MG/DL (<100); NON-HDL-C 145 MG/DL; THYROID STIMULATING HORMONE 0.543 uIU/ML (0.358-3.740); TRIGLYCERIDES LEVEL 73 MG/DL (<150)
== END ==
LOC: M SFHCADAM 09:39
PROVIDERS: ATTEND Physician Assistant
DX: B36.0 Pityriasis versicolor (principal)

== ENCOUNTER → 2023-04-01 | Outpatient (REF) | payer OTHER | LOC: M PLALAB 08:04 | PROVIDERS: ATTEND Obstetrics & Gynecology | DX: Z12.4 Encounter for screening for malignant neoplasm of cervix (principal) | CPT/HCPCS: 87624; G0123 ==

== ENCOUNTER → 2024-03-03 | Outpatient (CLI) | payer OTHER ==
[~2024-03-03] MED LIST changes: +LABE100T40; +LABE100T40 PO; -LABE100T71; -LABE100T71 PO
[2024-03-03 19:26] LABS: MONO REFLEX EBV COMP NEGATIVE (NEGATIVE)
[2024-03-06 15:02] LABS: EBV AB TO NUCLEAR ANTIGEN > 600.00 U/mL (<18.00); EBV VIRAL CAPSID AG IGM < 36.00 U/mL (<36.00)
== END ==
LOC: M PLALAB 14:44
PROVIDERS: ATTEND Physician Assistant Medical
DX: U07.1 COVID-19 (principal)

== ENCOUNTER → 2024-06-24 | Outpatient (CLI) | payer OTHER ==
[2024-06-24 10:40] LABS: BASO % 0.4 % (0.0-1.0); EOS # 0.1 10^3/uL (0.0-0.5); EOS % 1.4 % (0.0-3.0); HEMATOCRIT 36.3 % (36.0-47.0); HEMOGLOBIN 12.3 g/dl (12.0-15.5); LYMPH # 2.3 10^3/uL (1.5-5.0); LYMPH % 46.7 % (24.0-44.0); MEAN CORPUSCULAR HEMOGLOBIN 31.9 pg (27.0-33.0); MEAN CORPUSCULAR HGB CONC 33.9 g/dl (32.0-36.5); MONO # 0.4 10^3/uL (0.0-0.8); MONO % 7.4 % (2.0-8.0); NEUTROPHILS # 2.1 10^3/uL (1.5-8.5); NEUTROPHILS % 44.1 % (36.0-66.0); PLATELET COUNT, AUTOMATED 229 10^3/uL (150-450); RED BLOOD COUNT 3.86 10^6/uL (4.00-5.40); WHITE BLOOD COUNT 4.9 10^3/uL (4.0-10.0)
[2024-06-24 11:10] LABS: ALBUMIN 3.6 G/DL (3.2-5.2); ALKALINE PHOSPHATASE 40 U/L (35-104); ALT/SGPT 18 U/L (7.0-40); AST/SGOT 15 U/L (<34); BILIRUBIN,TOTAL 0.7 MG/DL (0.3-1.2); BLOOD UREA NITROGEN 16 MG/DL (9-23); CALCIUM LEVEL 9.7 MG/DL (8.5-10.1); CARBON DIOXIDE LEVEL 26 MMOL/L (20-31); CHLORIDE LEVEL 107 MMOL/L (98-107); CHOLESTEROL LEVEL 200 MG/DL (<200); CHOLESTEROL RISK RATIO 3.62 (<5); CREATININE FOR GFR 0.72 MG/DL (0.55-1.30); FERRITIN 22.7 NG/ML (7.3-270.7); GLOMERULAR FILTRATION RATE > 60.0 (>60); GLUCOSE, FASTING 79 MG/DL (60-100); HDL CHOLESTEROL 55.2 MG/DL (>40); IRON (FE) 112 UG/DL (50-170); LDL CHOLESTEROL 129.6 MG/DL (<100); NON-HDL-C 144.8 MG/DL; PERCENT SATURATION 27.5 % (13.2-45.0); POTASSIUM SERUM 4.3 MMOL/L (3.5-5.1); SODIUM LEVEL 139 MMOL/L (136-145); TOTAL IRON BINDING CAPACITY 408 UG/DL (250-425); TOTAL PROTEIN 7.4 G/DL (5.7-8.2); TRIGLYCERIDES LEVEL 76 MG/DL (<150)
[2024-06-24 11:11] LABS: TOTAL 25(OH) VITAMIN D 29.8 NG/ML (20.0-100.0)
[2024-06-24 11:12] LABS: VITAMIN B12 LEVEL 488 PG/ML (211-911)
== END ==
LOC: M PLALAB 08:09
PROVIDERS: ATTEND Physician Assistant
DX: Z00.00 Encounter for general adult medical examination without abnormal findings (principal); E78.2 Mixed hyperlipidemia; E55.9 Vitamin D deficiency, unspecified; I10 Essential (primary) hypertension; Z13.220 Encounter for screening for lipoid disorders

== ENCOUNTER → 2025-07-12 | Outpatient (REF) | payer OTHER | LOC: M SFHCPLAZ 13:46 | DX: Z53.9 Procedure and treatment not carried out, unspecified reason (principal) ==

== ENCOUNTER → 2025-07-13 | Outpatient (CLI) | payer OTHER ==
[2025-07-13 10:49] LABS: BASO # 0.0 10^3/uL (0.0-0.2); BASO % 0.2 % (0.0-1.0); EOS # 0.1 10^3/uL (0.0-0.5); EOS % 1.1 % (0.0-3.0); LYMPH # 2.1 10^3/uL (1.5-5.0); LYMPH % 47.8 % (24.0-44.0); MONO # 0.3 10^3/uL (0.0-0.8); MONO % 6.0 % (2.0-8.0); NEUTROPHILS # 2.0 10^3/uL (1.5-8.5); NEUTROPHILS % 44.7 % (36.0-66.0); PLATELET COUNT, AUTOMATED 237 10^3/uL (150-450)
[2025-07-13 11:42] LABS: ALT/SGPT 23 U/L (7.0-40); AST/SGOT 23 U/L (<34); CALCIUM LEVEL 10.0 MG/DL (8.5-10.1); CARBON DIOXIDE LEVEL 26 MMOL/L (20-31); CHLORIDE LEVEL 106 MMOL/L (98-107); CHOLESTEROL LEVEL 222 MG/DL (<200); CHOLESTEROL RISK RATIO 3.58 (<5); CREATININE FOR GFR 0.71 MG/DL (0.55-1.30); FREE T4 1.13 NG/DL (0.89-1.76); GLOMERULAR FILTRATION RATE > 90.0 (>58); LDL CHOLESTEROL 140.9 MG/DL (<100); NON-HDL-C 160.1 MG/DL; POTASSIUM SERUM 4.5 MMOL/L (3.5-5.1); SODIUM LEVEL 140 MMOL/L (136-145); TOTAL 25(OH) VITAMIN D 36.8 NG/ML (20.0-100.0); TRIGLYCERIDES LEVEL 96 MG/DL (<150)
[2025-07-13 12:51] LABS: ESTIMATED AVERAGE GLUCOSE 82.0 MG/DL (60-110)
== END ==
LOC: M PLALAB 08:57
DX: I10 Essential (primary) hypertension (principal); F41.9 Anxiety disorder, unspecified; Z13.1 Encounter for screening for diabetes mellitus; E55.9 Vitamin D deficiency, unspecified; E78.2 Mixed hyperlipidemia